=== PATIENT | female | born 1995 | race Caucasian/White ===

== ENCOUNTER 2018-12-28 16:30 | Emergency (ER) | payer OTHER ==
[~2018-12-28] VITALS: Ht 157.5 cm; Wt 49.9 kg
[2018-12-28] MEDS ORDERED: AMOX-CLAV 875-1 EACH PO (19:09)
[2018-12-28] MEDS ORDERED: INTESTINEX680 M1 PO (19:09)
== END 2018-12-28 19:15 | disposition home or self-care (01) ==
LOC: ER 16:30
DX: K12.1 Other forms of stomatitis (principal); J31.2 Chronic pharyngitis